=== PATIENT | female | born 1950 | race Hispanic/Latino ===

== ENCOUNTER → 2017-11-17 | Outpatient (CLI) | payer OTHER ==
[~2017-11-17] MED LIST: CIPR-245 PO; LEVO112T7 PO; METF500T6 PO; METR500T PO; ROSU20TA PO; TYL3 PO
== END | disposition home or self-care (01) ==
LOC: RAH 10:29
PROVIDERS: ATTEND Internal Medicine
DX: M47.812 Spondylosis without myelopathy or radiculopathy, cervical region (principal); M25.512 Pain in left shoulder
CPT/HCPCS: 72040; 73030

== ENCOUNTER → 2018-03-07 | Outpatient (CLI) | payer OTHER | END | disposition home or self-care (01) | LOC: RAH 10:17 | PROVIDERS: ATTEND Internal Medicine | DX: S92.911A Unspecified fracture of right toe(s), initial encounter for closed fracture (principal); M79.89 Other specified soft tissue disorders; X58.XXXA Exposure to other specified factors, initial encounter; Y93.89 Activity, other specified; Y92.89 Other specified places as the place of occurrence of the external cause; Y99.8 Other external cause status | CPT/HCPCS: 73630 ==

== ENCOUNTER → 2018-06-23 | Outpatient (CLI) | payer OTHER ==
[~2018-06-23] MED LIST changes: +METF-444 PO; -METF500T6 PO
== END | disposition home or self-care (01) ==
LOC: RAH 12:38
PROVIDERS: ATTEND Internal Medicine Endocrinology, Diabetes & Metabolism
DX: E04.1 Nontoxic single thyroid nodule (principal)
CPT/HCPCS: 76536

== ENCOUNTER → 2018-08-15 | Outpatient (CLI) | payer OTHER | END | disposition home or self-care (01) | LOC: RAH 11:15 | PROVIDERS: ATTEND Internal Medicine | DX: Z12.31 Encounter for screening mammogram for malignant neoplasm of breast (principal) | CPT/HCPCS: 77067 ==

== ENCOUNTER 2019-03-03 11:14 | Emergency (ER) | payer OTHER ==
[~2019-03-03 11:14] MED LIST changes: -ROSU20TA PO; +ROSU20TA23 PO
[2019-03-03 11:53] LABS: BASOPHILS % (AUTO) 0.4 % (0.0-5.0); EOSINOPHILS % (AUTO) 0.1 % (0.0-8.0); HEMATOCRIT 38.8 % (36-48); LYMPHOCYTES % (AUTO) 22.1 % (21.0-51.0); MEAN CORPUSCULAR HEMOGLOBIN 29.9 pg (27.0-33.0); MEAN CORPUSCULAR HGB CONC 33.7 g/dL (32.0-36.0); MEAN CORPUSCULAR VOLUME 88.8 fL (79-99); MONOCYTES % (AUTO) 4.1 % (3.0-13.0); NEUTROPHILS % (AUTO) 73.3 % (40.0-77.0); PLATELET COUNT (AUTO) 205 K/uL (130-400); RED BLOOD CELL COUNT(AUTO) 4.37 MIL/uL (4.00-5.50); RED CELL DISTRIBUTION WIDTH 13.6 % (11.0-15.5); WHITE BLOOD COUNT (AUTO) 6.3 K/uL (4.8-10.8)
[2019-03-03] MEDS ORDERED: MECLIZINE HCL 25 MG TABLET ONE (11:55)
[2019-03-03] MEDS ORDERED: ONDANSETRON HCL 4 MG/2 ML VIAL ONE (11:55)
[2019-03-03 12:04] LABS: CREATININE 0.9 mg/dL (0.5-1.5); POTASSIUM 4.1 mmol/L (3.5-5.1)
[2019-03-03 12:07] LABS: INR 0.96 (0.85-1.15); PROTHROMBIN TIME 10.1 SEC (9.6-11.6)
[2019-03-03 12:08] LABS: BILIRUBIN,TOTAL 0.5 mg/dL (0.2-1.0)
[2019-03-03 12:09] LABS: TOTAL PROTEIN, SERUM 7.8 g/dL (6.0-8.3)
[2019-03-03 12:20] LABS: APPEARANCE,URINE Clear (CLEAR); BILIRUBIN,URINE Negative (NEGATIVE); COLOR,URINE Yellow (YELLOW); GLUCOSE, URINE (UA) Negative (NEGATIVE); KETONES,URINE 15 mg/dL (NEGATIVE); LEUKOCYTE ESTERASE ,URINE Trace (NEGATIVE); NITRATE,URINE Negative (NEGATIVE); OCCULT BLOOD,URINE Negative (NEGATIVE); PH,URINE 7.5 (5.0-8.0); PROTEIN,URINE POS 1+ mg/dL (NEGATIVE); UROBILINOGEN,URINE 0.2 mg/dL (0.2-1.0)
[2019-03-03 12:23] LABS: B-TYPE NATRIURETIC PEPTIDE 52 pg/mL (0-100)
[2019-03-03 12:25] LABS: BACTERIA,URINE Rare /HPF (None Seen); RBC,URINE 0-1 /HPF (0-1); SQUAMOUS EPITHELIAL CELL,UR Rare /HPF (0-2); WBC,URINE 0-1 /HPF (0-1)
[2019-03-03] MEDS ORDERED: SODIUM CHLORIDE 0.9% 1000ML 1,000 ML IV ONE (12:48)
[2019-03-03] MEDS ORDERED: ASPIRIN 325 MG TABLET ONE (14:50)
[2019-03-03] MEDS ORDERED: ACETAMINOPHEN 325 MG TAB ONE (14:56)
== END 2019-03-03 16:58 | disposition home or self-care (01) ==
LOC: EDH 11:14
DX: H81.399 Other peripheral vertigo, unspecified ear (principal); R11.2 Nausea with vomiting, unspecified; R51 Headache; R00.2 Palpitations; R61 Generalized hyperhidrosis; R05 Cough; R79.1 Abnormal coagulation profile; E11.9 Type 2 diabetes mellitus without complications; E78.00 Pure hypercholesterolemia, unspecified; E07.9 Disorder of thyroid, unspecified; Z90.49 Acquired absence of other specified parts of digestive tract; Z98.890 Other specified postprocedural states
CPT/HCPCS: 36415; 70450; 70544; 70547; 70551; 80053; 81001; 82150; 82550; 83690; 83880; 85025; 85610; 85730; 93005; 96361; 96374; 99285; J2405; J7030

== ENCOUNTER → 2019-07-26 | Outpatient (CLI) | payer OTHER | END | disposition home or self-care (01) | LOC: RAH 09:32 | PROVIDERS: ATTEND Internal Medicine | DX: K59.00 Constipation, unspecified (principal); K57.92 Diverticulitis of intestine, part unspecified, without perforation or abscess without bleeding; M47.819 Spondylosis without myelopathy or radiculopathy, site unspecified | CPT/HCPCS: 74018 ==

== ENCOUNTER 2020-05-27 13:31 | Emergency (ER) | payer OTHER ==
[2020-05-27] MEDS ORDERED: ONDANSETRON HCL 4 MG/2 ML VIAL ONE (14:23)
[2020-05-27] MEDS ORDERED: MORPHINE SULFATE 4 MG/1ML SYG ONE (14:24)
[2020-05-27] MEDS ORDERED: SODIUM CHLORIDE 0.9% 1000ML 1,000 ML IV ONE (14:24)
[2020-05-27 14:25] LABS: BASOPHILS % (AUTO) 0.3 % (0.0-5.0); EOSINOPHILS % (AUTO) 1.4 % (0.0-8.0); HEMATOCRIT 35.3 % (36-48); LYMPHOCYTES % (AUTO) 26.6 % (21.0-51.0); MEAN CORPUSCULAR HEMOGLOBIN 30.8 pg (27.0-33.0); MEAN CORPUSCULAR VOLUME 90.5 fL (79-99); MONOCYTES % (AUTO) 5.8 % (3.0-13.0); NEUTROPHILS % (AUTO) 65.8 % (40.0-77.0); PLATELET COUNT (AUTO) 212 K/uL (130-400); RED CELL DISTRIBUTION WIDTH 13.5 % (11.0-15.5); WHITE BLOOD COUNT (AUTO) 7.1 K/uL (4.8-10.8)
[2020-05-27 14:35] LABS: CREATININE 0.9 mg/dL (0.5-1.5); POTASSIUM 4.3 mmol/L (3.5-5.1)
[2020-05-27 14:48] LABS: ALBUMIN 3.9 g/dL (3.5-5.0); BILIRUBIN,TOTAL 0.4 mg/dL (0.2-1.0)
[2020-05-27 15:09] LABS: APPEARANCE,URINE Clear (CLEAR); BILIRUBIN,URINE Negative (NEGATIVE); COLOR,URINE Yellow (YELLOW); GLUCOSE, URINE (UA) Negative (NEGATIVE); KETONES,URINE Negative (NEGATIVE); LEUKOCYTE ESTERASE ,URINE Trace (NEGATIVE); NITRATE,URINE Negative (NEGATIVE); OCCULT BLOOD,URINE Small (NEGATIVE); PROTEIN,URINE Negative (NEGATIVE); UROBILINOGEN,URINE 0.2 mg/dL (0.2-1.0)
[2020-05-27 15:21] LABS: BACTERIA,URINE Rare /HPF (None Seen); SQUAMOUS EPITHELIAL CELL,UR 0-2 /HPF (0-2); WBC,URINE 0-1 /HPF (0-1)
[2020-05-27] MEDS ORDERED: CEFTRIAXONE SODIUM 1 GM ONE (16:50)
[2020-05-27] MEDS ORDERED: SODIUM CHLORIDE 0.9% 100 ML IV ONE (16:51)
[2020-05-27] MEDS ORDERED: ACETAMINOPHEN 325 MG TAB ONE (17:24)
== END 2020-05-27 18:45 | disposition home or self-care (01) ==
LOC: EDH 13:31
DX: K57.32 Diverticulitis of large intestine without perforation or abscess without bleeding (principal); E11.9 Type 2 diabetes mellitus without complications; E78.00 Pure hypercholesterolemia, unspecified; E07.9 Disorder of thyroid, unspecified; Z90.49 Acquired absence of other specified parts of digestive tract
CPT/HCPCS: 36415; 74176; 80053; 81001; 82948; 83690; 84484; 85025; 93005; 96361; 96374; 96375; 99285; J0696; J2270; J2405; J7030

== ENCOUNTER 2022-11-01 13:34 | Inpatient (IN) | payer MEDICARE, OTHER ==
[~2022-11-01] VITALS: Ht 152.4 cm; Wt 67.1 kg
[~2022-11-01 13:34] MED LIST changes: -CIPR-245 PO; +CIPR500T10 PO
[2022-11-01 14:08] LABS: BASOPHILS % (AUTO) 0.3 % (0.0-5.0); EOSINOPHILS % (AUTO) 0.3 % (0.0-8.0); HEMATOCRIT 37.6 % (36-48); LYMPHOCYTES % (AUTO) 32.4 % (21.0-51.0); MEAN CORPUSCULAR HEMOGLOBIN 29.2 pg (27.0-33.0); MEAN CORPUSCULAR VOLUME 85.6 fL (79-99); MONOCYTES % (AUTO) 6.8 % (3.0-13.0); NEUTROPHILS % (AUTO) 59.9 % (40.0-77.0); PLATELET COUNT (AUTO) 234 K/uL (130-400); RED BLOOD CELL COUNT(AUTO) 4.39 MIL/uL (4.00-5.50); RED CELL DISTRIBUTION WIDTH 12.5 % (11.0-15.5); WHITE BLOOD COUNT (AUTO) 6.5 K/uL (4.8-10.8)
[2022-11-01 14:20] LABS: CREATININE 0.9 mg/dL (0.5-1.5)
[2022-11-01 14:24] LABS: ALBUMIN 3.9 g/dL (3.5-5.0); MAGNESIUM 1.9 mg/dL (1.80-2.40); TOTAL PROTEIN, SERUM 7.6 g/dL (6.0-8.3)
[2022-11-01 14:38] LABS: APPEARANCE,URINE CLEAR (CLEAR); BILIRUBIN,URINE NEGATIVE (NEGATIVE); COLOR,URINE COLORLESS (YELLOW); GLUCOSE, URINE (UA) NEGATIVE (NEGATIVE); KETONES,URINE NEGATIVE (NEGATIVE); LEUKOCYTE ESTERASE ,URINE NEGATIVE Leu/uL (NEGATIVE); NITRATE,URINE NEGATIVE (NEGATIVE); PH,URINE 5.5 (5.0-8.0); PROTEIN,URINE NEGATIVE (NEGATIVE); UROBILINOGEN,URINE 0.2 mg/dL (0.2-1.0)
[2022-11-01 14:41] LABS: RBC,URINE 0-1 /HPF (0-1); WBC,URINE 0-1 /HPF (0-1)
[2022-11-01] MEDS ORDERED: ACETAMINOPHEN 500 MG TABLET PO ONE (16:30)
[2022-11-01] MEDS ORDERED: ACETAMINOPHEN 325 MG TAB PO PRN (18:30)
[2022-11-01] MEDS ORDERED: MORPHINE 2 MG SYG IVP PRN (18:30)
[2022-11-01] MEDS ORDERED: NITROGLYCERIN 0.4 MG SL TAB SL PRN (18:30)
[2022-11-01] MEDS: 0.9%NACL 1000ML 1,000 ML IV SCH (18:41)
[2022-11-01] MEDS ORDERED: ASPIRIN 81MG CHEW TAB PO ONE (19:00)
[2022-11-01 19:18] LABS: HEMOGLOBIN A1C 6.3 % (4.0-6.0)
[2022-11-01 19:44] LABS: THYROID STIMULATING HORMONE 0.06 uIU/mL (0.36-3.74)
[2022-11-01] MEDS: PANTOPRAZOLE 40 MG/VIAL IVP SCH (20:10)
[2022-11-01] MEDS: INSULIN HUMULIN R 100 UNIT/ML 3ML SQ SCH (21:00)
[2022-11-01 21:40] LABS: INR 0.94 (0.85-1.15); PROTHROMBIN TIME 10.3 SEC (9.6-11.6)
[2022-11-01 21:41] LABS: PARTIAL THROMBOPLASTIN TIME 26.9 SEC (26.3-35.5)
[2022-11-01 22:49] LABS: CRP QUANTITATIVE < 2.00 mg/L (0.00-9.0)
[2022-11-01] MEDS: ATORVASTATIN 20 MG TABLET PO SCH (23:16)
[2022-11-02] MEDS ORDERED: MECO10005 PO (05:15)
[2022-11-02] MEDS ORDERED: LEVO88CA4 PO (05:15)
[2022-11-02 05:27] VITALS: BP 133/58
[2022-11-02 06:02] LABS: BASOPHILS % (AUTO) 0.2 % (0.0-5.0); EOSINOPHILS % (AUTO) 0.4 % (0.0-8.0); HEMATOCRIT 36.1 % (36-48); LYMPHOCYTES % (AUTO) 32.1 % (21.0-51.0); MEAN CORPUSCULAR HGB CONC 33.5 g/dL (32.0-36.0); MEAN CORPUSCULAR VOLUME 89.4 fL (79-99); MONOCYTES % (AUTO) 8.8 % (3.0-13.0); NEUTROPHILS % (AUTO) 58.3 % (40.0-77.0); PLATELET COUNT (AUTO) 210 K/uL (130-400); RED BLOOD CELL COUNT(AUTO) 4.04 MIL/uL (4.00-5.50); RED CELL DISTRIBUTION WIDTH 12.5 % (11.0-15.5); WHITE BLOOD COUNT (AUTO) 5.5 K/uL (4.8-10.8)
[2022-11-02 06:15] LABS: ALBUMIN 3.4 g/dL (3.5-5.0); MAGNESIUM 1.8 mg/dL (1.80-2.40); POTASSIUM 3.5 mmol/L (3.5-5.1); TOTAL PROTEIN, SERUM 6.8 g/dL (6.0-8.3)
[2022-11-02] MEDS: INSULIN HUMULIN R 100 UNIT/ML 3ML SQ SCH ×4 (06:34→20:22)
[2022-11-02 07:11] VITALS: BP 130/71
[2022-11-02] MEDS: ASPIRIN 81MG CHEW TAB PO SCH (09:27)
[2022-11-02] MEDS: Vitamin B Complex/Vit C/Folic Acid PO SCH (09:27)
[2022-11-02 12:05] VITALS: BP 99/72
[2022-11-02] MEDS: 0.9%NACL 1000ML 1,000 ML IV SCH (15:37)
[2022-11-02 16:46] VITALS: BP 143/76
[2022-11-02] MEDS: ONDANSETRON 4MG INJ IVP PRN (18:04)
[2022-11-02 20:00] VITALS: BP 117/61
[2022-11-02] MEDS: PANTOPRAZOLE 40 MG/VIAL IVP SCH (20:23)
[2022-11-02] MEDS: ATORVASTATIN 20 MG TABLET PO SCH (20:23)
[2022-11-02 23:55] VITALS: BP 143/67
[2022-11-03 03:54] VITALS: BP 119/65
[2022-11-03] MEDS: INSULIN HUMULIN R 100 UNIT/ML 3ML SQ SCH ×4 (06:31→20:22)
[2022-11-03 08:26] VITALS: BP 113/69
[2022-11-03] MEDS: ASPIRIN 81MG CHEW TAB PO SCH (08:33)
[2022-11-03] MEDS: Vitamin B Complex/Vit C/Folic Acid PO SCH (08:33)
[2022-11-03] MEDS ORDERED: REGADENOSON 0.4 MG/5 ML PF SYG IVP SCH (09:00)
[2022-11-03] MEDS: 0.9%NACL 1000ML 1,000 ML IV SCH (10:30)
[2022-11-03] MEDS: ONDANSETRON 4MG INJ IVP PRN (12:00)
[2022-11-03 12:01] VITALS: BP 111/82
[2022-11-03 16:50] VITALS: BP 110/71
[2022-11-03 19:47] VITALS: BP 113/57
[2022-11-03] MEDS: ATORVASTATIN 20 MG TABLET PO SCH (20:20)
[2022-11-03] MEDS: PANTOPRAZOLE 40 MG/VIAL IVP SCH (20:20)
[2022-11-03 23:40] VITALS: BP 121/54
[2022-11-04 04:00] VITALS: BP 99/51
[2022-11-04] MEDS: INSULIN HUMULIN R 100 UNIT/ML 3ML SQ SCH ×2 (06:02→11:30)
[2022-11-04 08:00] VITALS: BP 120/71
[2022-11-04] MEDS: ASPIRIN 81MG CHEW TAB PO SCH (08:17)
[2022-11-04] MEDS: Vitamin B Complex/Vit C/Folic Acid PO SCH (08:17)
[2022-11-04] MEDS ORDERED: AMLODIPINE 2.5 MG TAB PO SCH (10:30)
[2022-11-04 12:30] VITALS: BP 106/72
[2022-11-04] MEDS ORDERED: AMLO2.5T2 PO (12:50)
[2022-11-04] MEDS ORDERED: PANT40TA PO (12:50)
== END 2022-11-04 14:16 | disposition home or self-care (01) | DRG 303 ==
LOC: EDH 13:34 → EDHIP 18:31 → 2DH 11-02 04:54
PROVIDERS: ADMIT Internal Medicine; ATTEND Internal Medicine
PROC: 4A12XM4 Monitoring of Cardiac Stress, External Approach (ICD-10-PCS; principal; 2022-11-02)
PROC: 3E073KZ Introduction of Other Diagnostic Substance into Coronary Artery, Percutaneous Approach (ICD-10-PCS; 2022-11-02)
DX: I25.110 Atherosclerotic heart disease of native coronary artery with unstable angina pectoris (principal); I24.9 Acute ischemic heart disease, unspecified; E78.5 Hyperlipidemia, unspecified; Z20.822 Contact with and (suspected) exposure to COVID-19; E11.9 Type 2 diabetes mellitus without complications; E03.9 Hypothyroidism, unspecified; E78.00 Pure hypercholesterolemia, unspecified; Z79.84 Long term (current) use of oral hypoglycemic drugs
CPT/HCPCS: 36415; 70450; 71045; 78452; 80053; 80061; 81001; 82550; 82948; 83036; 83735; 83874; 84439; 84443; 84481; 84484; 85025; 85610; 85651; 85730; 86140; 87635; 87804; 93005; 93017; 93306; 96374; A9500; C9113; G0378; J2405; J2785; J7030

== ENCOUNTER → 2022-11-17 | Outpatient (CLI) | payer MEDICARE ==
[~2022-11-17] MED LIST changes: +AMLO2.5T2 PO; -CIPR500T10 PO; -LEVO112T7 PO; +LEVO88CA4 PO; +MECO10005 PO; -METR500T PO; +PANT40TA PO; -TYL3 PO
[2022-11-17 12:13] LABS: CREATININE 0.9 mg/dL (0.5-1.5); POTASSIUM 4.1 mmol/L (3.5-5.1)
== END | disposition home or self-care (01) ==
LOC: LAB 11:30
PROVIDERS: ATTEND Student in an Organized Health Care Education/Training Program
DX: I10 Essential (primary) hypertension (principal)
CPT/HCPCS: 36415; 80048

== ENCOUNTER → 2023-04-06 | Outpatient (CLI) | payer MEDICARE | END | disposition home or self-care (01) | LOC: RAH 08:35 | PROVIDERS: ATTEND Internal Medicine | DX: K21.01 Gastro-esophageal reflux disease with esophagitis, with bleeding (principal); R12 Heartburn; B96.81 Helicobacter pylori [H. pylori] as the cause of diseases classified elsewhere | CPT/HCPCS: 74240 ==

== ENCOUNTER → 2024-02-21 | Outpatient (CLI) | payer MEDICARE | END | disposition home or self-care (01) | LOC: RAH 11:32 | DX: M47.812 Spondylosis without myelopathy or radiculopathy, cervical region (principal); R07.89 Other chest pain | CPT/HCPCS: 72040; 72070 ==

== ENCOUNTER → 2024-08-02 | Outpatient (CLI) | payer MEDICARE ==
[~2024-08-02] MED LIST changes: +IOHEXOL-350 75 ML VIAL IV ONE
--- NOTE | 2024-08-02 10:55 | HMCIMG ---
CT ABDOMEN/PELVIS W/CONTRAST REASON: ABDO PAIN COMPARISON: 05/27/2020. TECHNIQUE: Images are obtained from lung bases through the symphysis pubis following IV contrast, 75 cc Omnipaque 350. FINDINGS: Lung bases are clear. There are no focal liver lesions. There are normal-appearing kidneys.. Spleen and pancreas appear unremarkable. The gallbladder appears normal as well. There is moderate sigmoid diverticulosis without evidence of diverticulitis. There are scattered diverticula throughout the remainder of the colon as well. Bowel loops appear otherwise unremarkable. There is no evidence of obstruction or focal inflammation. There is been a previous appendectomy. There is no evidence of free fluid or intraperitoneal air. There are no focal fluid collections. Aorta and retroperitoneum appear normal as do pelvic soft tissue structures. The anterior abdominal wall is intact. Osseous structures appear unremarkable. IMPRESSION: 1. Moderate to marked diverticulosis of the sigmoid colon, there are scattered diverticula through the remainder of the colon as well, there is no evidence of diverticulitis. 2. Otherwise unremarkable postcontrast CT abdomen and pelvis. CT was performed with one or more following dose reduction techniques: automated exposure control, adjustment of the mA and kv according to patient's size, or use of a iterative reconstruction technique.
== END | disposition home or self-care (01) ==
LOC: RAH 09:08
PROVIDERS: ATTEND Surgery
DX: K57.30 Diverticulosis of large intestine without perforation or abscess without bleeding (principal); R10.9 Unspecified abdominal pain
CPT/HCPCS: 74177; Q9967